=== PATIENT | male | born 1955 | race Caucasian/White ===

== ENCOUNTER → 2018-12-30 | Outpatient (CLI) | payer BC, OTHER ==
[2015-12-19 11:36] VITALS: BP 124/74
[~2018-12-30] MED LIST: ASPIRIN 32325 MG/TAB PO; ATENOLOL50 MG PO; CARDI-OMEGA1000 MG PO; CHANTIX 1MG1 MG PO; HYTRIN2 M1 PO; IRON FERROUS S325 MG PO; MULTIPLE VITAMI1 TAB PO; NIACIN500 MG PO; NORVASC 10MG10 MG PO; SYNTHROID0.075 MG PO; VYTORIN 10 MG-41 TAB PO
[2018-12-30 10:01] LABS: BASO # 0.1 (0.02-0.10); EOS # 0.3 (0.04-0.40); EOS % 4.6 % (0.0-4.0); HEMATOCRIT 46.6 % (42.0-52.0); LYMPH# 1.2 (1.50-4.00); MEAN CELL VOLUME 93 fl (78-100); MEAN CORPUSCULAR HEMOGLOBIN 30 pg (27-31); MEAN CORPUSCULAR HGB CONC 32 g/dL (33-37); MEAN PLATELET VOLUME 9.3 fl (7.4-10.4); MONO # 0.7 (0.20-0.80); NEU # 3.6 (1.40-6.50); PLATELET COUNT 227 K/mm3 (130-400); RED BLOOD COUNT 5.02 M/mm3 (4.20-5.60); RED CELL DISTRIBUTION WIDTH 13.9 % (11.5-14.5); WHITE BLOOD COUNT 5.9 K/mm3 (4.8-10.8)
[2018-12-30 10:08] LABS: ALBUMIN 4.3 g/dL (3.5-5.0); CALCIUM 9.4 mg/dL (8.4-10.2); POTASSIUM 4.4 mmol/L (3.6-5.0); TOTAL BILIRUBIN 0.7 mg/dL (0.2-1.3); TOTAL PROTEIN 7.1 g/dL (6.3-8.2)
[2018-12-30 11:59] LABS: ERYTHROCYTE SEDIMENTATION RATE 9 mm/hr (0-20)
== END ==
LOC: LAB 09:26
PROVIDERS: Internal Medicine
DX: Z00.00 Encounter for general adult medical examination without abnormal findings (principal); Z12.11 Encounter for screening for malignant neoplasm of colon

== ENCOUNTER → 2022-01-09 | Outpatient (CLI) | payer BC, MEDICARE, OTHER ==
[2022-01-09 10:29] LABS: BASO # 0.06 K/mm3 (0.02-0.10); EOS % 6.4 % (0.0-4.0); HEMATOCRIT 44.6 % (42.0-52.0); HEMOGLOBIN 14.4 g/dL (13.5-18.0); LYMPH# 1.03 K/mm3 (1.50-4.00); MEAN CELL VOLUME 94 fl (78-100); MEAN CORPUSCULAR HEMOGLOBIN 30 pg (27-31); MEAN CORPUSCULAR HGB CONC 32 g/dL (33-37); MEAN PLATELET VOLUME 9.8 fl (7.4-10.4); MONO # 0.57 K/mm3 (0.20-0.80); NEU # 2.75 K/mm3 (1.40-6.50); PLATELET COUNT 220 K/mm3 (130-400); RED BLOOD COUNT 4.77 M/mm3 (4.20-5.60); RED CELL DISTRIBUTION WIDTH 13.3 % (11.5-14.5); WHITE BLOOD COUNT 4.7 K/mm3 (4.8-10.8)
[2022-01-09 10:34] LABS: POTASSIUM 4.5 mmol/L (3.5-5.1)
[2022-01-09 10:35] LABS: CALCIUM 9.2 mg/dL (8.3-10.5)
[2022-01-09 10:36] LABS: TOTAL PROTEIN 6.6 g/dL (6.2-8.1)
[2022-01-09 10:38] LABS: TOTAL BILIRUBIN 0.6 mg/dL (0.2-1.2)
[2022-01-09 12:29] LABS: ERYTHROCYTE SEDIMENTATION RATE 12 mm/hr (0-20)
== END ==
LOC: LAB 09:15
PROVIDERS: Internal Medicine
DX: Z00.00 Encounter for general adult medical examination without abnormal findings (principal); Z12.11 Encounter for screening for malignant neoplasm of colon; C61 Malignant neoplasm of prostate; K90.9 Intestinal malabsorption, unspecified; E03.4 Atrophy of thyroid (acquired); I10 Essential (primary) hypertension; E78.2 Mixed hyperlipidemia; I25.5 Ischemic cardiomyopathy; F17.210 Nicotine dependence, cigarettes, uncomplicated

== ENCOUNTER → 2024-03-08 | Outpatient (CLI) | payer MEDICARE, OTHER | LOC: RAD 09:40 | DX: Z13.6 Encounter for screening for cardiovascular disorders (principal) ==

== ENCOUNTER → 2024-03-23 | Outpatient (CLI) | payer MEDICARE, OTHER ==
[2024-03-23 09:44] LABS: BASO # 0.03 K/mm3 (0.02-0.10); EOS # 0.31 K/mm3 (0.04-0.40); EOS % 5.5 % (0.0-4.0); HEMATOCRIT 46.9 % (42.0-52.0); HEMOGLOBIN 15.1 g/dL (13.5-18.0); LYMPH# 1.11 K/mm3 (1.50-4.00); MEAN CELL VOLUME 96 fl (78-100); MEAN CORPUSCULAR HEMOGLOBIN 31 pg (27-31); MEAN CORPUSCULAR HGB CONC 32 g/dL (33-37); MEAN PLATELET VOLUME 8.9 fl (7.4-10.4); NEU # 3.69 K/mm3 (1.40-6.50); PLATELET COUNT 214 K/mm3 (130-400); RED BLOOD COUNT 4.91 M/mm3 (4.20-5.60); RED CELL DISTRIBUTION WIDTH 13.1 % (11.5-14.5); WHITE BLOOD COUNT 5.7 K/mm3 (4.8-10.8)
[2024-03-23 09:45] LABS: ALBUMIN 4.2 g/dL (3.4-4.8)
[2024-03-23 09:46] LABS: CALCIUM 9.5 mg/dL (8.3-10.5)
[2024-03-23 09:47] LABS: TOTAL PROTEIN 6.7 g/dL (6.2-8.1)
[2024-03-23 09:49] LABS: TOTAL BILIRUBIN 0.5 mg/dL (0.2-1.2)
[2024-03-23 09:54] LABS: MAGNESIUM 1.78 mg/dL (1.60-2.60)
[2024-03-23 23:29] LABS: HEPATITIS C VIRUS ANTIBODY Negative (Negative)
== END ==
LOC: LAB 09:25
PROVIDERS: Internal Medicine
DX: Z12.11 Encounter for screening for malignant neoplasm of colon (principal); Z11.59 Encounter for screening for other viral diseases; C61 Malignant neoplasm of prostate; E03.4 Atrophy of thyroid (acquired); E78.2 Mixed hyperlipidemia; K90.9 Intestinal malabsorption, unspecified; R73.9 Hyperglycemia, unspecified